=== PATIENT | male | born 1990 | race Two or more races ===

== ENCOUNTER → 2018-05-04 | Emergency (ER) | payer OTHER ==
[~2018-05-04] VITALS: Ht 170.2 cm; Wt 63.5 kg
[2018-05-04 11:49] VITALS: BP 130/80
== END | disposition home or self-care (01) ==
LOC: ER 10:20
DX: N50.812 Left testicular pain (principal)
CPT/HCPCS: 76870; 99284; A4606; A6402; Z7610